=== PATIENT | female | born 1950 | race Caucasian/White ===

== ENCOUNTER → 2017-04-10 | Outpatient (CLI) | payer MEDICARE ==
[2017-04-10 13:14] LABS: ISTAT CREATININE 0.8 mg/dL (0.6-1.1)
[2017-04-10] MEDS: IOHEXOL 300 MG/ML 100ML VIAL. IV (13:19)
== END | disposition home or self-care (01) ==
LOC: KCIC CT 12:34
DX: K76.0 Fatty (change of) liver, not elsewhere classified (principal); R05 Cough
CPT/HCPCS: 71260; 82565; Q9967

== ENCOUNTER → 2017-06-01 | Day surgery (SDC) | payer MEDICARE ==
[~2017-06-01] MED LIST: LIDOCAINE 1% PF 2 ML VIAL.; PROPOFOL 20 ML IV
[2017-06-01] MEDS: IV RINGERS,LACTATED 1000ML 1,000 ML IV (09:36)
== END ==
LOC: ENDOS 08:41
DX: Z12.11 Encounter for screening for malignant neoplasm of colon (principal); I10 Essential (primary) hypertension; K59.00 Constipation, unspecified; M19.90 Unspecified osteoarthritis, unspecified site; J45.909 Unspecified asthma, uncomplicated; G47.30 Sleep apnea, unspecified; K58.8 Other irritable bowel syndrome; F32.9 Major depressive disorder, single episode, unspecified; Z90.710 Acquired absence of both cervix and uterus; Z96.651 Presence of right artificial knee joint; Z79.82 Long term (current) use of aspirin; Z83.71 Family history of colonic polyps; Z88.0 Allergy status to penicillin; Z88.8 Allergy status to other drugs, medicaments and biological substances; Z88.1 Allergy status to other antibiotic agents; Z91.048 Other nonmedicinal substance allergy status
CPT/HCPCS: G0121; J2704

== ENCOUNTER → 2018-01-11 | Outpatient (CLI) | payer MEDICARE ==
[2017-06-01 10:58] VITALS: BP 129/71
[~2018-01-11] MED LIST changes: +AMLO10TA6 PO; +ASPI-482 PO; +BREO ELLIPTA 11 EACH IH; +BUPR150T6 PO; +CELE200C PO; +CHOL10003 PO; +ESCITALOPRAM OX10 MG PO; +FLUT1DIS3 IH; +FURO20TA3 PO; +LACT1CAP2 PO; -LIDOCAINE 1% PF 2 ML VIAL.; +LISI1TAB3 PO; +MELA1TAB11 PO; +MONT10TA9 PO; +NAPR500T8 PO; +OMEP20CA9 PO; +PROAIR HFA8.5 GM IH; -PROPOFOL 20 ML IV; +UMEC62.5 IH; +VITAMIN B12 PO
--- NOTE | 2018-01-11 16:59 | KCIC ---
CT of the chest compared to similar study dated April 10, 2017 for interstitial lung disease. TECHNIQUE: Contiguous helical 5 mm axial images are obtained from the thoracic inlet to the base of diaphragm. Sagittal and coronal reformations are evaluated. FINDINGS: There are small calcified lymph nodes in the left hilum, a calcified granuloma in the left lung base, and there are calcifications in the spleen, all consistent with antecedent granulomatous disease. No suspicious mediastinal, hilar, or axillary lymphadenopathy is identified. No significant vascular calcifications are seen. Central airways are patent. The previously described peripheral reticular densities with bilateral lower lobe prominence are redemonstrated, and are unchanged in distribution but do appear mildly increased in conspicuity. These also appear in the anterior mid lungs bilaterally. Once again no honeycombing, bronchiectasis, or suspicious nodules or masses are identified. No pleural effusions are seen. No areas of focal consolidation are evident. Fatty atrophy of the pancreas is again evident. There are degenerative changes of the midthoracic spine, with no suspicious osteoblastic or osteolytic bone lesions. IMPRESSION: 1. Redemonstration of bilateral symmetrical peripheral reticular interstitial opacities with a posterior basilar and anterior midlung predominance, without honeycombing, bronchiectasis, or associated nodules or masses. Distribution is unchanged but findings are more conspicuous today. This could reflect early usual interstitial pneumonia and/or chronic interstitial scarring. 2. Other chronic changes as described. PQRS Compliance Statement: One or more of the following individualized dose reduction techniques were utilized for this examination: 1. Automated exposure control 2. Adjustment of the mA and/or kV according to patient size 3. Use of iterative reconstruction technique Electronically signed by: Rehan Smiley MD (01/11/2018 4:56 PM) [id number]
== END | disposition home or self-care (01) ==
LOC: KCIC CT 11:03
PROVIDERS: ATTEND Internal Medicine Critical Care Medicine
DX: J84.89 Other specified interstitial pulmonary diseases (principal); K86.89 Other specified diseases of pancreas; J84.10 Pulmonary fibrosis, unspecified; I10 Essential (primary) hypertension; J45.909 Unspecified asthma, uncomplicated
CPT/HCPCS: 71250

== ENCOUNTER → 2018-01-28 | Outpatient (CLI) | payer MEDICARE ==
[2017-06-01 10:58] VITALS: BP 129/71
--- NOTE | 2018-01-28 17:25 | RAD ---
PA and lateral chest radiograph. History: Interstitial lung disease. Comparison: CT chest January 11, 2018. Findings: Cardiac silhouette appears borderline enlarged. Bilateral lung sullivan appear clear without evidence of infiltrate, effusion, or pneumothorax. There is accentuation of interstitial markings, compatible with provided history of interstitial lung disease. Impression: 1. No acute cardiopulmonary process. 2. Fibrotic changes, compatible with provided history of interstitial lung disease. 3. Mild enlargement of cardiac silhouette. Electronically signed by: Zeke Elizabeth MD (01/28/2018 5:21 PM) [place] [id number]
== END | disposition home or self-care (01) ==
LOC: RAD 15:25
PROVIDERS: ATTEND Internal Medicine
DX: J84.89 Other specified interstitial pulmonary diseases (principal); I51.7 Cardiomegaly
CPT/HCPCS: 71046

== ENCOUNTER → 2018-02-19 | Outpatient (CLI) | payer MEDICARE ==
[2018-02-01 11:23] VITALS: BP 106/48
[~2018-02-19] MED LIST changes: +OXYC5TAB4 PO; +SENN-22 PO
[2018-02-19 10:51] LABS: BASO # 0.1 x10^3/uL (0.0-0.2); BASO % 1 % (0-3); EOS # 0.3 x10^3/uL (0.0-0.7); EOS % 3 % (0-3); HEMATOCRIT 35.8 % (36.0-47.0); HEMOGLOBIN 12.2 g/dL (12.0-15.5); LYMPH # 1.7 x10^3/uL (1.0-4.8); LYMPH % 18 % (24-48); MEAN CORPUSCULAR HEMOGLOBIN 32 pg (25-35); MEAN CORPUSCULAR HGB CONC 34 g/dL (31-37); MEAN CORPUSCULAR VOLUME 94 fL (79-100); MONO # 0.9 x10^3/uL (0.0-1.1); MONO % 10 % (0-9); NEUT # 6.2 x10^3uL (1.8-7.7); NEUT % 67 % (31-73); PLATELET COUNT 337 x10^3/uL (140-400); RED CELL DISTRIBUTION WIDTH 13.3 % (11.5-14.5); WHITE BLOOD COUNT 9.2 x10^3/uL (4.0-11.0)
[2018-02-19 11:25] LABS: ALBUMIN 3.7 g/dL (3.4-5.0); DIRECT BILIRUBIN 0.1 mg/dL (0.0-0.2); TOTAL BILIRUBIN 0.5 mg/dL (0.2-1.0); TOTAL PROTEIN 7.8 g/dL (6.4-8.2)
== END | disposition home or self-care (01) ==
LOC: LAB 10:29
PROVIDERS: ATTEND Internal Medicine Critical Care Medicine
DX: J84.112 Idiopathic pulmonary fibrosis (principal)
CPT/HCPCS: 36415; 80076; 85025

== ENCOUNTER → 2018-02-22 | Outpatient (CLI) | payer MEDICARE ==
[2018-02-01 11:23] VITALS: BP 106/48
--- NOTE | 2018-02-22 17:36 | RAD ---
Chest, 2 views, 02/22/2018: HISTORY: Left lower lobe resection Comparison is made to a study from 02/01/2018. The heart is enlarged. There are prominent pulmonary markings particularly in the lung bases. No dense consolidation is seen. There is no evidence of pleural fluid or pneumothorax. IMPRESSION: Moderate prominence of the basilar pulmonary markings probably representing chronic interstitial lung disease/fibrosis Electronically signed by: Kunal Alvarez MD (02/22/2018 5:33 PM) [facility]
== END | disposition home or self-care (01) ==
LOC: RAD 13:34
PROVIDERS: ATTEND Thoracic Surgery (Cardiothoracic Vascular Surgery)
DX: Z09 Encounter for follow-up examination after completed treatment for conditions other than malignant neoplasm (principal); I51.7 Cardiomegaly; Z98.890 Other specified postprocedural states
CPT/HCPCS: 71046

== ENCOUNTER → 2018-05-14 | Outpatient (CLI) | payer MEDICARE ==
[2018-02-01 11:23] VITALS: BP 106/48
[~2018-05-14] MED LIST changes: +ALBU2.5V8 IH; -AMLO10TA6 PO; +AMLO10TA8 PO; +OMEP20CA10 PO; -OMEP20CA9 PO; -PROAIR HFA8.5 GM IH
[2018-05-14 14:33] LABS: ALBUMIN 3.8 g/dL (3.4-5.0); DIRECT BILIRUBIN 0.1 mg/dL (0.0-0.2); TOTAL BILIRUBIN 0.4 mg/dL (0.2-1.0); TOTAL PROTEIN 7.4 g/dL (6.4-8.2)
== END | disposition home or self-care (01) ==
LOC: LAB 13:31
PROVIDERS: ATTEND Internal Medicine Critical Care Medicine
DX: J84.112 Idiopathic pulmonary fibrosis (principal)
CPT/HCPCS: 36415; 80076

== ENCOUNTER → 2018-06-18 | Outpatient (CLI) | payer MEDICARE ==
[2018-02-01 11:23] VITALS: BP 106/48
[2018-06-18 09:57] LABS: ALBUMIN 3.9 g/dL (3.4-5.0); DIRECT BILIRUBIN 0.1 mg/dL (0.0-0.2); TOTAL BILIRUBIN 0.4 mg/dL (0.2-1.0); TOTAL PROTEIN 7.6 g/dL (6.4-8.2)
== END | disposition home or self-care (01) ==
LOC: LAB 09:22
PROVIDERS: ATTEND Internal Medicine Critical Care Medicine
DX: J84.112 Idiopathic pulmonary fibrosis (principal)
CPT/HCPCS: 36415; 80076

== ENCOUNTER → 2018-07-22 | Outpatient (CLI) | payer MEDICARE ==
[2018-02-01 11:23] VITALS: BP 106/48
[2018-07-22 10:07] LABS: DIRECT BILIRUBIN 0.1 mg/dL (0.0-0.2); TOTAL BILIRUBIN 0.5 mg/dL (0.2-1.0); TOTAL PROTEIN 7.6 g/dL (6.4-8.2)
== END | disposition home or self-care (01) ==
LOC: LAB 09:22
PROVIDERS: ATTEND Internal Medicine Critical Care Medicine
DX: J84.112 Idiopathic pulmonary fibrosis (principal)
CPT/HCPCS: 36415; 80076

== ENCOUNTER → 2018-07-24 | Outpatient (CLI) | payer MEDICARE ==
[2018-02-01 11:23] VITALS: BP 106/48
[~2018-07-24] MED LIST changes: +CONTRAST GIVEN. MC PRN; +IOHEXOL 240 MG/ML 50ML VIAL. PO ONE; +IOHEXOL 300 MG/ML 100ML VIAL. IV ONE
--- NOTE | 2018-07-24 12:00 | KCIC ---
CT study of the abdomen and pelvis with and without contrast Clinical indications: Abdominal pain. Nausea and vomiting. Symptoms for one week. Diarrhea. TECHNIQUE: Noncontrast helical CT scanning of the abdomen and pelvis was performed. Following IV infusion of 100 cc Omnipaque 300, repeat helical CT scanning of abdomen and pelvis was performed. GI contrast was administered per mouth. PQRS compliance Statement One or more of the following individualized dose reduction techniques were utilized for this study: 1. Automated exposure control 2. Adjustment of the mA and/or kV according to patient size 3. Use of iterative reconstruction technique COMPARISON: No previous CT of the abdomen or pelvis. FINDINGS: No urinary tract stone or hydronephrosis or hydroureter is seen on the noncontrast portion of the study. Small right renal cyst is seen. No renal mass is evident. No focal aneurysmal dilatation of the abdominal aorta is seen. No adrenal mass is seen. There is diffuse fatty infiltration of the liver. No hepatic mass is seen. The spleen is not abnormally enlarged. The pancreas and gallbladder are normal. No extrahepatic biliary ductal dilatation is seen. No enlarged abdominal or pelvic lymphadenopathy is evident. The appendix is normal. The terminal ileum is unremarkable. No obstructive bowel pattern is evident. There is wall thickening of the colon from the distal transverse colon to the rectosigmoid region. No pericolonic inflammatory change is seen. No free fluid or free air or abscess is seen. The uterus is surgically absent. Small hiatal hernia is seen. Chronic pulmonary fibrosis is seen within the lung bases which was seen on previous chest CT January 11, 2018. No lytic process is seen. IMPRESSION: Wall thickening of the colon from the distal transverse colon down into the rectosigmoid region consistent with colitis. Electronically signed by: Frank Drake MD (07/24/2018 11:57 AM) [place] [id number]
== END | disposition home or self-care (01) ==
LOC: KCIC CT 10:13
PROVIDERS: ATTEND Nurse Practitioner Family
DX: K57.30 Diverticulosis of large intestine without perforation or abscess without bleeding (principal); N28.1 Cyst of kidney, acquired; K76.0 Fatty (change of) liver, not elsewhere classified; K44.9 Diaphragmatic hernia without obstruction or gangrene; J84.10 Pulmonary fibrosis, unspecified; Z90.710 Acquired absence of both cervix and uterus
CPT/HCPCS: 74178; 82565; Q9966; Q9967

== ENCOUNTER → 2018-11-08 | Outpatient (CLI) | payer MEDICARE ==
[2018-02-01 11:23] VITALS: BP 106/48
[~2018-11-08] MED LIST changes: -CONTRAST GIVEN. MC PRN; -IOHEXOL 240 MG/ML 50ML VIAL. PO ONE; -IOHEXOL 300 MG/ML 100ML VIAL. IV ONE; +MONT10TA49 PO; -MONT10TA9 PO
--- NOTE | 2018-11-08 12:55 | RAD ---
PQRS Compliance statement: One or more of the following individualized dose reduction techniques were utilized for this examination: 1. Automated exposure control. 2. Adjustment of the mA and/or kV according to patient size. 3. Use of iterative reconstruction technique. Indication:Fibrosis. TECHNIQUE: CT chest without IV contrast with multiplanar reformats. COMPARISON: 01/11/2018. FINDINGS: Heart is normal in size. No pericardial or effusion. Clear neck base. No enlarged axillary, mediastinal adenopathy. Evaluation of hilar lymphadenopathy is limited due to lack of IV contrast. Central airways are patent. Interstitial opacities are seen in the bilateral subpleural upper lobes and lower lobes. No groundglass opacities. There is no honeycombing. Visualized noncontrast sections through the liver, spleen, gallbladder, pancreas, adrenals and upper kidneys within normal limits. No suspicious bony lesion. IMPRESSION: Stable findings of interstitial lung disease. Electronically signed by: Mckay Self DO (11/08/2018 12:52 PM) [facility]
== END | disposition home or self-care (01) ==
LOC: CT 10:41
PROVIDERS: ATTEND Internal Medicine Critical Care Medicine
DX: J84.112 Idiopathic pulmonary fibrosis (principal); J84.9 Interstitial pulmonary disease, unspecified
CPT/HCPCS: 71250

== ENCOUNTER → 2018-11-13 | Outpatient (CLI) | payer MEDICARE ==
[2018-02-01 11:23] VITALS: BP 106/48
[2018-11-13 12:30] LABS: ALBUMIN 4.2 g/dL (3.4-5.0); DIRECT BILIRUBIN 0.1 mg/dL (0.0-0.2); TOTAL BILIRUBIN 0.5 mg/dL (0.2-1.0); TOTAL PROTEIN 7.9 g/dL (6.4-8.2)
== END | disposition home or self-care (01) ==
LOC: LAB 11:52
PROVIDERS: ATTEND Internal Medicine Critical Care Medicine
DX: J84.112 Idiopathic pulmonary fibrosis (principal)
CPT/HCPCS: 36415; 80076

== ENCOUNTER → 2019-01-20 | Outpatient (CLI) | payer MEDICARE ==
[2018-02-01 11:23] VITALS: BP 106/48
[~2019-01-20] MED LIST changes: +LISI1TAB23 PO; -LISI1TAB3 PO
[2019-01-20 10:54] LABS: ALBUMIN 4.1 g/dL (3.4-5.0); DIRECT BILIRUBIN 0.1 mg/dL (0.0-0.2); TOTAL BILIRUBIN 0.5 mg/dL (0.2-1.0); TOTAL PROTEIN 7.5 g/dL (6.4-8.2)
== END ==
LOC: LAB 09:52
PROVIDERS: ATTEND Internal Medicine Critical Care Medicine
DX: J84.112 Idiopathic pulmonary fibrosis (principal)
CPT/HCPCS: 36415; 80076

== ENCOUNTER → 2019-08-05 | Outpatient (CLI) | payer MEDICARE ==
[2018-02-01 11:23] VITALS: BP 106/48
[~2019-08-05] MED LIST changes: -OMEP20CA10 PO; +OMEP20CA16 PO
--- NOTE | 2019-08-05 08:40 | RAD ---
PQRS Compliance Statement: One or more of the following individualized dose reduction techniques were utilized for this examination: 1. Automated exposure control 2. Adjustment of the mA and/or kV according to patient size 3. Use of iterative reconstruction technique CT CHEST WO CONTRAST 08/05/2019 8:09 AM Indication: Interstitial lung disease COMPARISON: CT chest 11/07/2018, 01/11/2018 TECHNIQUE: Multiple axial CT images of the chest were obtained with intravenous contrast. Coronal and sagittal reformats are provided. FINDINGS: Thyroid gland is normal in appearance. No pathologically enlarged thoracic lymph nodes. 9 mm precarinal lymph node heart size within normal limits. No pericardial effusion. Thoracic aorta is normal in course and caliber. Small hiatal hernia. Subpleural interstitial changes are identified with lower lung zone predominance. Traction bronchiectasis is identified within the lower lobes bilaterally. Subpleural cystic changes at the right lung base could represent early honeycombing. Mild scattered areas of groundglass change are noted. No definite air trapping is visualized. No suspicious solid noncalcified pulmonary nodules. There is a 7 mm calcified granuloma in the left lung base. Airways are patent. No pleural effusions, pulmonary vascular congestion or pneumothorax. Splenic calcifications suggest prior granulomatous exposure. There is moderate fatty atrophy of the pancreas. Left parapelvic renal cysts are identified. No suspicious osseous abnormality is identified. IMPRESSION: 1. Findings are most compatible with chronic interstitial lung disease without significant interval change since 11/08/2018 and mild progression since 01/11/2018. Constellation of findings is nonspecific, however most suggestive of usual interstitial pneumonitis. There may be early honeycombing at the right lung base. Electronically signed by: Alyssa Norton MD (08/05/2019 8:37 AM) [id number]
== END | disposition home or self-care (01) ==
LOC: CT 07:34
PROVIDERS: ATTEND Internal Medicine Critical Care Medicine
DX: J47.9 Bronchiectasis, uncomplicated (principal); J84.10 Pulmonary fibrosis, unspecified; R91.8 Other nonspecific abnormal finding of lung field; K44.9 Diaphragmatic hernia without obstruction or gangrene; D73.89 Other diseases of spleen; K86.89 Other specified diseases of pancreas; N28.1 Cyst of kidney, acquired
CPT/HCPCS: 71250

== ENCOUNTER → 2020-01-14 | Outpatient (CLI) | payer MEDICARE ==
[2018-02-01 11:23] VITALS: BP 106/48
[~2020-01-14] MED LIST changes: +AMLO-187 PO; -AMLO10TA8 PO
--- NOTE | 2020-01-14 12:29 | CARD ---
MR#: [id number] Date of Study: 01/14/2020 Ordering Physician: LAYTON SEGUNDO, Referring Physician: LAYTON SEGUNDO, Tech: Yenifer Hogue APPROVED REPORT EXAM: Two-dimensional and M-mode echocardiogram with Doppler and color Doppler. Other Information Quality : AverageHR: 72bpm INDICATION Dyspnea RISK FACTORS Hypertension Hyperlipidemia Pulmonary Fibrosis 2D DIMENSIONS RVDd3.4 (2.9-3.5cm)Left Atrium(2D)4.0 (1.6-4.0cm) IVSd1.0 (0.7-1.1cm)Aortic Root(2D)3.5 (2.0-3.7cm) LVDd5.3 (3.9-5.9cm)LVOT Diameter2.0 (1.8-2.4cm) PWd1.2 (0.7-1.1cm)LVDs4.0 (2.5-4.0cm) FS (%) 24.4 %SV66.1 ml LVEF(%)48.0 (>50%) Aortic Valve AoV Peak Piyush.124.3cm/sAoV VTI26.5cm AO Peak GR.6.2mmHgLVOT Peak Piyush.105.1cm/s LVOT VTI 23.25cmAO Mean GR.4mmHg ARLEY (VMAX)1.97zy2NGB (VTI)2.75cm2 Mitral Valve MV E Ezosfzzz17.2cm/sMV DECEL WOAN025lw MV A Qermicqj55.4cm/sMV QBL83xx E/A Ratio0.7MVA (PHT)3.33cm2 TDI E/Lateral E'7.6E/Medial E'7.0 Pulmonary Valve PV Peak Cxupuign08.1cm/sPV Peak Grad.4mmHg Tricuspid Valve TR P. Cnxwvhvs397js/sRAP DAUCBPQQ1rtAr TR Peak Gr.79jxNiYDUB10ckZo Pulmonary Vein S1 Wcayjdkv34.4cm/sD2 Tqrisnyi27.7cm/s PVa ecskwqks040dahf LEFT VENTRICLE The left ventricle is normal size. There is normal left ventricular wall thickness. The left ventricu lar systolic function is normal. The Ejection Fraction is 55%. There is normal LV segmental wall erlinda on. Transmitral Doppler flow pattern is Grade I-abnormal relaxation pattern. RIGHT VENTRICLE The right ventricle is normal size. There is normal right ventricular wall thickness. The right ventr icular systolic function is normal. ATRIA The left atrium size is normal. The right atrium is borderline dilated. The interatrial septum is int act with no evidence for an atrial septal defect or patent foramen ovale as noted on 2-D or Doppler i maging. AORTIC VALVE The aortic valve is thickened but opens well. Doppler and Color Flow revealed no significant aortic r egurgitation. There is no significant aortic valvular stenosis. Calculated aortic valve area is 2.81 cm2 with maximum pressure gradient of 7 mmHg and mean pressure gradient of 4 mmHg. MITRAL VALVE The mitral valve is normal in structure and function. There is no evidence of mitral valve prolapse. There is no mitral valve stenosis. Doppler and Color Flow revealed no mitral valve regurgitation note d. TRICUSPID VALVE The tricuspid valve is normal in structure and function. Doppler and Color Flow revealed trace tricus pid regurgitation with an estimated PAP of 33 mmHg. There is no tricuspid valve stenosis. PULMONIC VALVE The pulmonic valve is not well visualized. Doppler and Color Flow revealed trace pulmonic valvular re gurgitation. GREAT VESSELS The aortic root is normal in size. The IVC is normal in size and collapses >50% with inspiration. PERICARDIAL EFFUSION There is no evidence of significant pericardial effusion. Critical Notification Critical Value: No <Conclusion> The left ventricular systolic function is normal. The Ejection Fraction is 55%. There is normal LV segmental wall motion. Transmitral Doppler flow pattern is Grade I-abnormal relaxation pattern. Trace tricuspid regurgitation with an estimated PAP of 33 mmHg. There is no evidence of significant pericardial effusion. Signed by : Yayo Barragan, Electronically Approved : 01/14/2020 12:29:34
== END ==
LOC: ECHO 08:41
PROVIDERS: ATTEND Internal Medicine Critical Care Medicine
DX: R06.02 Shortness of breath (principal)
CPT/HCPCS: 93306

== ENCOUNTER → 2020-09-13 | Outpatient (CLI) | payer MEDICARE ==
[2018-02-01 11:23] VITALS: BP 106/48
[~2020-09-13] MED LIST changes: +BUPR150T21 PO; -BUPR150T6 PO
--- NOTE | 2020-09-13 11:48 | RAD ---
PQRS Compliance Statement: One or more of the following individualized dose reduction techniques were utilized for this examinat ion: 1. Automated exposure control 2. Adjustment of the mA and/or kV according to patient size 3. Use of iterative reconstruction technique CT THORAX WO 09/13/2020 9:42 AM Indication: Idiopathic pulmonary fibrosis COMPARISON: CT chest 08/05/2019 TECHNIQUE: Multiple axial CT images of the chest were obtained without intravenous contrast. Coronal and sagittal reformats are provided. FINDINGS: No pleural effusions, pulmonary vascular congestion or pneumothorax. There is increased reticular int erstitial thickening with lower lung zone predominance as compared prior examination from 08/05/2019. For example, there is increased reticular interstitial changes along the anterolateral right upper lo be with increase in groundglass opacity (series 3, image 25). There is increased traction bronchiecta sis with a proximal measuring up to 5 mm in the posterior right lower lobe, previously 3 mm (series 3 , image 37). There may be early honeycombing identified within the anterior right upper lobe and infe rior lingula. Minimal honeycombing identified at the right costophrenic angle. No new or enlarging so lid noncalcified pulmonary nodule. There is a precarinal lymph node measuring 1.4 cm short axis, stab le. Mild hilar fullness. The collimation of adenopathy in coronary vasculature. Heart size is borderl ine enlarged. Thoracic aorta is normal in course and caliber. No pericardial effusion. Small hiatal h ernia, stable. Calcifications within the spleen likely represent sequela prior exam as exposure. Mode rate fatty atrophy of the pancreas. No suspicious osseous abnormality is identified. IMPRESSION: Constellation of findings is suggestive of underlying interstitial lung disease as may be seen with u sual interstitial pneumonia. There is increase in reticular interstitial changes with mild increase i n subpleural groundglass opacity. Superimposed infectious/inflammatory process remains a differential consideration. 3 month follow-up chest CT could be of benefit. Electronically signed by: Alyssa Norton MD (09/13/2020 11:45 AM) [facility]
== END ==
LOC: CT 09:40
PROVIDERS: ATTEND Internal Medicine Critical Care Medicine
DX: J92.9 Pleural plaque without asbestos (principal); J47.9 Bronchiectasis, uncomplicated; J84.112 Idiopathic pulmonary fibrosis; K44.9 Diaphragmatic hernia without obstruction or gangrene; K86.89 Other specified diseases of pancreas
CPT/HCPCS: 71250